=== PATIENT | male | born 1970 | race Caucasian/White ===

== ENCOUNTER → 2022-03-09 09:55 | Outpatient (CLI) | payer OTHER, MEDICAID, SELFPAY ==
--- NOTE | 2022-03-09 | DI.RAD.S_ITS ---
PROCEDURE: XR KUB INDICATIONS: KIDNEY STONE TECHNIQUE: One view of the abdomen acquired. COMPARISON: [facility], , KUB XRAY (1 VIEW ABDOMEN), 01/01/2017, 9:35. FINDINGS: Surgical changes and devices: None. Bowel: Bowel gas pattern is normal. Soft tissues: No suspicious abdominal calcifications. Visualized solid organ contours appear normal in size. Bones: No suspicious bony lesions. Is flattening of both femoral heads similar prior IMPRESSION: 1. No radiographic evidence of renal calculi. 2. Bilateral femoral head flattening, left greater than right, stable Approved by: Kalyan Morin M.D. on 03/09/2022 at 10:04
[2022-03-09 11:49] LABS: Calcium 8.7 mg/dL (8.4-10.2); Uric Acid 5.8 mg/dL (3.5-8.5)
[2022-03-10 09:40] LABS: Calcium 9.2 mg/dL (8.7-10.2); Parathyroid Hormone, Intact 44 pg/mL (15-65)
== END ==
PROVIDERS: Family Provider Internal Medicine; PCP Internal Medicine; Referring Provider Urology; Visit Provider Urology
DX: N20.2 Calculus of kidney with calculus of ureter (principal); R33.9 Retention of urine, unspecified
CPT/HCPCS: 36415; 51798; 74018; 81002; 82310; 83970; 84550; 99214

== ENCOUNTER → 2022-05-19 11:01 | Outpatient (ROUT) | payer OTHER, SELFPAY ==
[2022-05-25 07:39] LABS: Ca oxalate dihydrate 60 % (.); Ca oxalate monohydr 35 % (.); Hydroxyapatite 5 % (.); Size 3x2 mm (.)
== END ==
PROVIDERS: Family Provider Internal Medicine; PCP Internal Medicine; Visit Provider Urology
DX: N20.0 Calculus of kidney (principal)
CPT/HCPCS: 82365